=== PATIENT | male | born 1960 | race Caucasian/White ===

== ENCOUNTER 2019-01-06 12:52 | Emergency (ER) | payer MEDICAID ==
[~2019-01-06] VITALS: Ht 182.9 cm; Wt 78.0 kg
[2019-01-06 15:12] VITALS: BP 150/69
== END 2019-01-06 15:12 | disposition home or self-care (01) ==
LOC: ED 12:52
DX: M70.21 Olecranon bursitis, right elbow (principal); Z88.6 Allergy status to analgesic agent; Y93.89 Activity, other specified
CPT/HCPCS: Q0092